=== PATIENT | female | born 1975 ===

== ENCOUNTER 2018-04-06 12:48 | Emergency (ER) | payer OTHER ==
[~2018-04-06] VITALS: Ht 157.5 cm; Wt 62.6 kg
[2018-04-06] MEDS ORDERED: SYNTHROID50 MCG (13:05)
== END 2018-04-06 18:13 | disposition home or self-care (01) ==
LOC: ER 12:48
DX: R51 Headache (principal)

== ENCOUNTER 2020-05-24 12:17 | Emergency (ER) | payer OTHER ==
[~2020-05-24] VITALS: Ht 157.5 cm; Wt 64.4 kg
[~2020-05-24 12:17] MED LIST: SYNTHROID50 MCG
[2020-05-24] MEDS ORDERED: LIPITOR20 MG (12:35)
[2020-05-24] MEDS ORDERED: ADULT LOW DOSE81 M1 (12:35)
== END 2020-05-24 16:37 | disposition home or self-care (01) ==
LOC: ER 12:17
DX: R42 Dizziness and giddiness (principal); Z20.822 Contact with and (suspected) exposure to COVID-19

== ENCOUNTER 2021-08-31 22:31 | Emergency (ER) | payer OTHER ==
[~2021-08-31] VITALS: Ht 157.5 cm; Wt 69.9 kg
[~2021-08-31 22:31] MED LIST changes: +ADULT LOW DOSE81 M1; +LIPITOR20 MG
[2021-09-01] MEDS ORDERED: MIRALAX510 GM PO (05:14)
== END 2021-09-01 05:17 ==
LOC: ER 22:31
DX: R10.84 Generalized abdominal pain (principal); K59.00 Constipation, unspecified; E03.9 Hypothyroidism, unspecified